=== PATIENT | female | born 1995 | race African-American/Black ===

== ENCOUNTER 2018-11-09 20:12 | Emergency (ER) | payer SELFPAY | END 2018-11-09 22:25 | disposition left against medical advice (07) | LOC: ER 20:14 | DX: R52 Pain, unspecified (principal); Z53.21 Procedure and treatment not carried out due to patient leaving prior to being seen by health care provider ==

== ENCOUNTER 2018-11-10 15:45 | Emergency (ER) | payer MEDICAID ==
[~2018-11-10] VITALS: Ht 162.6 cm; Wt 65.8 kg
[2018-11-10 16:42] LABS: Urine Amorphous Crystal FEW /hpf (None Seen); Urine Bacteria NONE SEEN /hpf (None Seen); Urine Blood Negative /uL (Negative); Urine WBC 2 /hpf (0 - 5)
[2018-11-10 16:58] VITALS: BP 153/90
== END 2018-11-10 16:59 | disposition home or self-care (01) ==
LOC: ER 15:45
DX: R10.9 Unspecified abdominal pain (principal); Z32.01 Encounter for pregnancy test, result positive
CPT/HCPCS: 81001; 81025

== ENCOUNTER 2018-12-13 03:16 | Emergency (ER) | payer SELFPAY ==
[~2018-12-13] VITALS: Ht 162.6 cm; Wt 62.1 kg
[2018-12-13 03:23] VITALS: BP 130/78
== END 2018-12-13 03:58 ==
LOC: ER 03:18
DX: Z02.89 Encounter for other administrative examinations (principal)

== ENCOUNTER 2018-12-30 11:12 | Emergency (ER) | payer OTHER ==
[~2018-12-30] VITALS: Ht 162.6 cm; Wt 68.0 kg
[2018-12-30 11:43] VITALS: BP 123/68
[2018-12-30 12:12] LABS: Basophils # (auto) 0 uL; Basophils % (auto) 0.1 % (0.0-2.0); Eosinophils # (auto) 0 uL; Eosinophils % (auto) 0.3 % (0.0-7.0); Hematocrit 38.5 % (36.0-46.0); Hemoglobin 12.8 g/dL (12.2-16.2); Lymphocytes # (auto) 2.1 uL; Lymphocytes % (auto) 17.7 % (10.0-50.0); Mean Corpuscular Hemoglobin 27.7 pg (28.0-32.0); Mean Corpuscular Hgb Conc. 33.2 g/dL (32.0-36.0); Mean Corpuscular Volume 83.5 fL (80.0-100.0); Monocytes # (auto) 0.5 uL; Monocytes % (auto) 4.5 % (0.0-12.0); Neutrophils # (auto) 9.4 uL; Neutrophils % (auto) 77.4 % (37.0-80.0); Platelet Count (auto) 318 10^3/uL (140-450); Red Blood Cells 4.61 10^6/uL (4.0-5.20); Red Cell Distribution Width 14.1 % (11.8-14.3); White Blood Cell 12.1 10^3/uL (4.4-10.8)
[2018-12-30 12:12] LABS: Urine Bacteria NONE SEEN /hpf (None Seen); Urine Blood Negative /uL (Negative); Urine Mucus FEW (None Seen); Urine Specific Gravity 1.021 (1.001-1.035); Urine WBC 1 /hpf (0 - 5)
[2018-12-30 12:31] LABS: Albumin 3.8 g/dL (3.4-5.0); Potassium 3.6 mmol/L (3.5-5.1)
[2018-12-30 12:35] LABS: BUN/Creatinine Ratio 14.9; Bilirubin, Total 0.4 mg/dL (0.2-1.0); Total Protein 7.7 g/dL (6.4-8.2)
== END 2018-12-30 14:01 | disposition home or self-care (01) ==
LOC: ER 11:19
DX: O26.891 Other specified pregnancy related conditions, first trimester (principal); R10.9 Unspecified abdominal pain; Z3A.11 11 weeks gestation of pregnancy
CPT/HCPCS: 36415; 76801; 80053; 81001; 84702; 85025

== ENCOUNTER 2019-09-10 03:13 | Emergency (ER) | payer BC, MEDICAID ==
[~2019-09-10] VITALS: Ht 162.6 cm; Wt 86.2 kg
[2019-09-10 03:27] VITALS: BP 159/80
== END 2019-09-10 03:33 | disposition left against medical advice (07) ==
LOC: EDBD 03:13 → ER 03:13
DX: J02.9 Acute pharyngitis, unspecified (principal); Z53.21 Procedure and treatment not carried out due to patient leaving prior to being seen by health care provider

== ENCOUNTER 2019-12-20 14:43 | Emergency (ER) | payer OTHER, BC, MEDICAID ==
[~2019-12-20] VITALS: Ht 162.6 cm; Wt 70.3 kg
[2019-12-20 14:55] VITALS: BP 129/59
[2019-12-20] MEDS ORDERED: LIDOCAINE 1% HCL (LOCAL ANESTH.) INJ 20ML MDV IJ ONE (16:15)
== END 2019-12-20 16:34 ==
LOC: ER 14:43
DX: S61.412A Laceration without foreign body of left hand, initial encounter (principal); S61.214A Laceration without foreign body of right ring finger without damage to nail, initial encounter; W22.8XXA Striking against or struck by other objects, initial encounter; Y93.89 Activity, other specified; Y92.9 Unspecified place or not applicable; Y99.8 Other external cause status
CPT/HCPCS: 12002; 36415; 84702

== ENCOUNTER 2019-12-26 12:14 | Emergency (ER) | payer OTHER, BC, MEDICAID ==
[~2019-12-26] VITALS: Ht 162.6 cm; Wt 65.8 kg
[2019-12-26 12:43] VITALS: BP 150/86
== END 2019-12-26 12:49 | disposition home or self-care (01) ==
LOC: ER 12:14
DX: S61.412D Laceration without foreign body of left hand, subsequent encounter (principal); S61.411D Laceration without foreign body of right hand, subsequent encounter; Z32.02 Encounter for pregnancy test, result negative; X58.XXXD Exposure to other specified factors, subsequent encounter
CPT/HCPCS: 81025